=== PATIENT | female | born 1965 | race Caucasian/White ===

== ENCOUNTER 2017-03-09 10:06 | Emergency (ER) | payer OTHER ==
[~2017-03-09] VITALS: Ht 157.5 cm; Wt 96.4 kg
[2017-03-09 10:08] VITALS: BP 155/100; PULSE 113; RESP 15; O2SAT 97
--- NOTE | 2017-03-09 11:20 | ED.REPORT ---
HPI-General Illness Date of Service Mar 09, 2017 ED Provider: Kusum Mai MD Patient is a 52 year old female with a hx of developmental delay due to alcohol syndrome and psychiatric admissions who presents to the ED complaining of urinary urgency and frequency onset 3 days ago. She saw her PCP 2 days ago and was given Diflucan for a yeast infection. Associated symptoms include insomnia which may be secondary to her urinary urgency. She denies fever, chills , nausea, vaginal bleeding, or any other symptoms. Patient is anxious about an exam that her primary provider gave her and would like more information about what is going on. She does not take any prescription medications. Nursing Notes Stated Complaint: DISTRESSED,BLOOD IN STOOL Chief Complaint: Female Abdominal Pain Nursing Notes Reviewed: Yes Allergies: Coded Allergies: No Known Allergies (Unverified , 03/09/17) Scheduled Quetiapine Fumarate (Quetiapine Fumarate) 100 Mg Tablet 100 MG PO HS General Time Seen by MD: 10:45 Chief Complaint Urinary frequency Hx Obtained From: Patient, Other family... Arrived By: Walk-in Sudden in Onset?: Yes Onset Occurred: 3 days ago Symptom Duration: Since onset Recent Healthcare: Recent doctor visit Past Medical History Past Medical History alcohol syndrome - developmental delay Psychiatric admissions - possibility of bipolar disorder, question preethi/hypomania certainly significant anxiety. In the past it sounds like she has been on both clonazepam and Seroquel Past Surgical History None reported Social History hx of trauma induced anxiety, non-compliant with counseling Ambulatory Status Independent Review of Systems Full Review of Systems Constitutional: Denies: Chills, Fever GI: Denies: Nausea Female: Reports: Urinary frequency, Urinary urgency, Denies: Vaginal bleeding - abnl Psychiatric: Reports: Anxiety, Insomnia Complete sys rev & neg: except as marked. Physical Exam Vital Signs Vital Signs Date Time Temp Pulse Resp B/P Pulse Ox O2 Delivery O2 Flow Rate FiO2 03/09/17 10:08 36.5 113 15 155/100 97 Room Air Initial VS: Reviewed, Vital signs abnormal Neck: Full range of motion Skin: Warm, Dry Neurologic: Alert, Oriented, Nonfocal General/Constitutional: Awake, Alert Behavior: Positive: Anxious Head / Eyes: Atraumatic, Normocephalic Respiratory / Chest: Atraumatic, Breath sounds NL, Breath sounds = bilat, No respiratory distress Abdomen: Atraumatic, Soft, Non-tender Female Genitourinary: Fitness Leader present, Atraumatic, External genitalia NL, No bleeding exam consistent with yeast infection, appears to be improving. Psychiatric: Not suicidal, Not homicidal Abnormal Mood/Affect: Positive: Anxious Overwhelmingly anxious. Interpretation & Diagnostics Lab Results Interpretation Test 03/09/17 10:15 Urine Color Yellow (YELLOW) Urine Appearance Hazy (CLEAR,HAZY) Urine pH 6.0 (5.0-8.0) Urine Specific [place] 1.020 (1.003-1.035) Urine Protein Tracemg/dL (NEG,TRACE) Urine Glucose (UA) Negativemg/dL (NEGATIVE) Urine Ketones Negativemg/dL (NEGATIVE) Urine Occult Blood Small (NEGATIVE) Urine Nitrite Negative (NEGATIVE) Urine Bilirubin Negative (NEGATIVE) Urine Urobilinogen Normalmg/dL (NORMAL) Urine Leukocyte Esterase Negative (NEGATIVE) Urine RBC 0-2/hpf (0-2) Urine WBC 0-5/hpf (0-5) Urine Epithelial Cells Occasional/hpf (NONE-MOD) Urine Crystals Oxalic acid crystals (NONE Urine Bacteria Moderate/hpf (NONE-FEW) Urine Hyaline Casts None/lpf (NONE) Urine Granular Casts None seen (NONE SEEN) Urine Waxy Casts None seen (NONE SEEN) Urine Red Blood Cell Casts None seen (NONE SEEN) Urine White Blood Cell Casts None seen (NONE SEEN) Urine Mucus Present (None Seen) Urine Trichomonas None seen (NONE SEEN) Urine Yeast None (NONE SEEN) Urinalysis Comment None Urine Culture Reflexed Indicated Hold Urine Received (Received) Lab Results Interpretation: Microbiology DUDLEY WET PREP VAG OR REC Final 03/09/17-1207 WBCS FEW YEAST NONE SEEN CLUE CELLS NONE SEEN TRICHOMONAS NONE SEEN Re-Eval/Medical Decision Time of Eval: 13:25 Patient Status: Condition improved Re-Evaluation/Progress Note: Significantly improved after Ativan. Consultation : Consulted With: Primary care physician Call Returned at: 13:22 Manager Regional Sales: Will see in office, Agrees with eval Note: Reviewed care, findings, and starting Seroquel 100 mg along with need to follow-up next week Discharge & Departure Primary Impression: Anxiety Additional Impressions: Vaginal yeast infection Insomnia Disposition: Home Additional Instructions: You do have a yeast infection and it IS getting better. All the girl parts look nice and healthy. You can use some of the antifungal cream we gave you in the ER, applied to the outside parts 2 times a day for the next 2-3 days (the pill will kick in soon) I spoke with Kyara Valencia about sleeping and anxiety medication for you. I want you to start 100mg of Seroquel tonight. this will help you sleep and will help get rid of the anxiety Please call to schedule and apt with SEBASTIAN Wasserman early next week I think you will feel much better by this weekend! Referrals: Kyara Valencia (PCP) copies to: Kyara Valencia Shawna L MD Mar 09, 2017 11:20 KEN MAN Mar 09, 2017 11:38
[2017-03-09] MEDS ORDERED: LORazepam 1 mg Tablet PO ONE (11:55)
[2017-03-09 12:35] LABS: COLOR,URINE YELLOW (YELLOW)
[2017-03-09 12:36] LABS: APPEARANCE,URINE HAZY (CLEAR,HAZY); OCCULT BLOOD,URINE SMALL (NEGATIVE); UROBILINOGEN,URINE NORMAL (NORMAL)
[2017-03-09] MEDS ORDERED: QUET100T69 PO (13:24)
[2017-03-09 13:37] VITALS: BP 123/82; PULSE 93; RESP 15; O2SAT 97
== END 2017-03-09 13:37 | disposition home or self-care (01) ==
LOC: SED 10:06
DX: F41.9 Anxiety disorder, unspecified (principal); B37.3 Candidiasis of vulva and vagina; G47.00 Insomnia, unspecified; Z91.410 Personal history of adult physical and sexual abuse

== ENCOUNTER 2017-03-15 15:31 | Emergency (ER) | payer OTHER ==
[~2017-03-15] VITALS: Ht 157.5 cm; Wt 96.4 kg
[~2017-03-15 15:31] MED LIST: QUET100T69 PO
[2017-03-15 15:40] VITALS: BP 122/83; PULSE 111; RESP 14; O2SAT 97
[2017-03-15 19:00] LABS: BASOPHILS % (AUTO) 0.4 % (0-3); EOSINOPHILS % (AUTO) 0.7 % (0-5); MONOCYTES % (AUTO) 8.7 % (4-12); Mean Corpuscular Hemoglobin 29.7 pg (27.0-35.0); Mean Corpuscular Volume 89.1 fL (81-100); NEUTROPHILS % (AUTO) 70.5 % (40-74); Platelet Count 225 bil/L (150-400)
--- NOTE | 2017-03-15 19:29 | ED.REPORT ---
HPI-Psychiatric Illness Date of Service Mar 15, 2017 ED Provider: Bucky Leal DO Patient is a 52 year old female with a history of psychiatric admissions, developmental delay to due alcohol syndrome and depression who presents to the ED due to suicidal ideations. The patient reports that she has no plan but feels like she will hurt herself. She reports that she can't get herself to shower or eat for the past week. Per the nursing notes, the patient initially came in with soiled clothing and appeared very anxious while continuously shaking her hands. Nursing Notes Stated Complaint: MENTAL HEALTH Chief Complaint: Psychiatric Complaint Nursing Notes Reviewed: Yes Allergies: Coded Allergies: No Known Allergies (Unverified , 03/15/17) Scheduled Quetiapine Fumarate (Quetiapine Fumarate) 100 Mg Tablet 100 MG PO HS Quetiapine Fumarate (Seroquel) 100 Mg Tablet 150 MG PO HS Scheduled PRN Zolpidem (Zolpidem) 5 Mg Tablet 5 MG PO HS PRN PRN For Insomnia General Time Seen by MD: 18:09 Chief Complaint Suicidal ideation Hx Obtained From: Patient Similar Sx Previous: Yes Risk-Psychiatric Illness Suicide Risk Stratification Suicide Risk Factors - Adult: : Prior psych admission RF Statements: Risk factors reviewed Past Medical History Past Medical History alcohol syndrome - developmental delay Psychiatric admissions - possibility of bipolar disorder, question preethi/hypomania certainly significant anxiety. In the past it sounds like she has been on both clonazepam and Seroquel Past Surgical History None reported Social History hx of trauma induced anxiety, non-compliant with counseling Ambulatory Status Independent Review of Systems Constitutional: Denies: Chills, Fever Respiratory: Denies: Non-productive cough, Shortness of breath Skin: Denies Itching, Denies Rash Neurologic: Reports: Shaking, Denies: Lightheaded, Numbness, Weakness Psychiatric: Reports: Anxiety, Depression, Suicidal ideation Complete sys rev & neg: except as marked. Physical Exam Initial Vital Signs Vital Signs (First) Date Time Temp Pulse Resp B/P Pulse Ox O2 Delivery O2 Flow Rate FiO2 03/15/17 15:40 36.8 111 14 122/83 97 Room Air Initial VS: Reviewed General/Constitutional: Awake, Alert Neurologic: Oriented X3, Speech NL Abnormal Mood/Affect: Positive: Anxious, Depressed, Flat affect Abnormal Thinking / Perception: Positive: Insight abnormal, Judgment abnormal Head / Eyes: Atraumatic, Normocephalic, PERRL, EOMI Respiratory / Chest: Atraumatic, Breath sounds NL, Breath sounds = bilat, No respiratory distress Cardiovascular: Heart rate NL, Regular rhythm, Heart sounds NL Skin: Atraumatic, Color NL, No rash, Warm, Dry Lower Extremity / Pelvis / MS: Atraumatic, No edema Interpretation & Diagnostics Lab Results Interpretation Result Diagram: 03/15/17 1854 03/15/17 1854 Test 03/15/17 17:17 03/15/17 18:54 03/15/17 21:26 Hold Urine Received (Received) White Blood Count 8.4th/mm3 (3.8-10.1) Red Blood Count 4.75mil/mm3 (3.90-5.20) Hemoglobin 14.1g/dL (12.0-15.6) Hematocrit 42.3% (35.0-46.0) Mean Corpuscular Volume 89.1fL (81-100) Mean Corpuscular Hemoglobin 29.7pg (27.0-35.0) Mean Corpuscular Hemoglobin Concent 33.3% (32.0-37.0) Red Cell Distribution Width 14.5% (12.3-15.4) Platelet Count 225bil/L (150-400) Neutrophils (%) (Auto) 70.5% (40-74) Lymphocytes (%) (Auto) 19.5% (14-46) Monocytes (%) (Auto) 8.7% (4-12) Eosinophils (%) (Auto) 0.7% (0-5) Basophils (%) (Auto) 0.4% (0-3) Sodium Level 140mEq/L (134-144) Potassium Level 4.1mEq/L (3.5-5.2) Chloride Level 100mEq/L (97-108) Carbon Dioxide Level 21mmol/L (18-29) Blood Urea Nitrogen 19mg/dL (6-24) Creatinine 0.87mg/dL (0.57-1.00) Estimat Glomerular Filtration Rate 98mL/min (>59) Glucose Level 99mg/dL (60-99) Calcium Level 10.0mg/dL (8.5-10.1) Total Bilirubin 0.5mg/dL (0.0-1.2) Aspartate Amino Transf (AST/SGOT) 23U/L (0-50) Alanine Aminotransferase (ALT/SGPT) 29U/L (0-32) Alkaline Phosphatase 68U/L (25-150) Total Protein 8.3g/dL (6.4-8.4) Albumin 4.5g/dL (3.4-5.0) Thyroid Stimulating Hormone (TSH) 2.150uIU/mL (0.450-4.500) Hold Miller Top Tube Received (Received) Urine Color Bloody (YELLOW) Urine Appearance Cloudy (CLEAR,HAZY) Urine pH 5.5 (5.0-8.0) Urine Specific [place] 1.029 (1.003-1.035) Urine Protein 100mg/dL (NEG,TRACE) Urine Glucose (UA) Negativemg/dL (NEGATIVE) Urine Ketones 40mg/dL (NEGATIVE) Urine Occult Blood Large (NEGATIVE) Urine Nitrite Negative (NEGATIVE) Urine Bilirubin Negative (NEGATIVE) Urine Urobilinogen Normalmg/dL (NORMAL) Urine Leukocyte Esterase Negative (NEGATIVE) Urine RBC 3-10/hpf (0-2) Urine WBC 0-5/hpf (0-5) Urine Epithelial Cells Many/hpf (NONE-MOD) Urine Crystals Amorphous urates (NONE Urine Bacteria Few/hpf (NONE-FEW) Urine Hyaline Casts None/lpf (NONE) Urine Granular Casts None seen (NONE SEEN) Urine Waxy Casts None seen (NONE SEEN) Urine Red Blood Cell Casts None seen (NONE SEEN) Urine White Blood Cell Casts None seen (NONE SEEN) Urine Mucus Present (None Seen) Urine Trichomonas None seen (NONE SEEN) Urine Yeast None (NONE SEEN) Urinalysis Comment None Urine Culture Reflexed Not indicated Re-Eval/Medical Decision Med Decision/Clinical Course Medically cleared. I do however feel that this young lady is gravely disabled due to her depression and mental health. Recommended hospitalization. She has been accepted for treatment at an outside facility. Transfer arranged. Re-Evaluation/Progress : Time of Eval: 22:14 Re-Evaluation/Progress Note: Plan to transfer patient to [facility]. Patient understands and agrees to plan. All questions were addressed Counseled Regarding: Diagnosis, Lab results, Need for transfer Discharge & Departure Impression: Primary Impression: Acute situational disturbance Additional Impressions: Depression Depression Type: major depressive disorder Major depression recurrence: recurrent Active/Remission status: currently active Major depression episode severity: severe Psychotic features: with psychotic features Qualified Code : F33.3 - Major depressive disorder, recurrent, severe with psychotic symptoms Suicidal ideation )( Condition at Discharge: Clear for psych facility Disposition: Transfer, Acute Care Facility Discharge Condition All VS Reviewed: Yes Condition: Stable Referrals: Kyara Valencia (PCP) Butch Attestation Portions of this note were transcribed by Judi Price. I, Dr. Leal personally performed the history, physical exam and medical decision-making; I reviewed and confirmed the accuracy of the information in the transcribed note. Signed by: Butch Stewart, 03/15/17 copies to: Kyara Valencia Todd P DO Mar 15, 2017 19:29 Tata Price Mar 15, 2017 19:45
[2017-03-15 19:46] VITALS: BP 130/84; PULSE 94; RESP 19; O2SAT 100
[2017-03-15] MEDS ORDERED: ZOLP5TAB6 PO (21:53)
[2017-03-15] MEDS ORDERED: QUET100T PO (21:55)
[2017-03-15 22:02] LABS: APPEARANCE,URINE CLOUDY (CLEAR,HAZY); COLOR,URINE BLOODY (YELLOW); PH,URINE 5.5 (5.0-8.0)
[2017-03-15 22:03] LABS: OCCULT BLOOD,URINE LARGE (NEGATIVE); UROBILINOGEN,URINE NORMAL (NORMAL)
[2017-03-15] MEDS ORDERED: LORazepam 1 mg Tablet PO ONE (22:15)
[2017-03-16 00:08] VITALS: BP 118/78; PULSE 82; RESP 20; O2SAT 100
== END 2017-03-16 00:09 | disposition other institution (70) ==
LOC: SED 15:31
DX: F43.20 Adjustment disorder, unspecified (principal); F33.3 Major depressive disorder, recurrent, severe with psychotic symptoms; R45.851 Suicidal ideations; F41.9 Anxiety disorder, unspecified